=== PATIENT | female | born 1960 ===

== ENCOUNTER 2019-01-04 19:47 | Emergency (ER) | payer BC ==
[2019-01-04 19:54] VITALS: BP 166/106
--- NOTE | 2019-01-04 19:57 | EDM.PDOC ---
ED HPI GENERAL MEDICAL PROBLEM - General Chief Complaint: Laceration Stated Complaint: LACERATION Time Seen by Provider: 01/04/19 19:57 Source of Information: Reports: Patient, Family, RN, RN Notes Reviewed History Limitations: Reports: No Limitations - History of Present Illness INITIAL COMMENTS - FREE TEXT/NARRATIVE: Pt to ER with c/o laceration to the left hand. Patient states she was cutting frozen hamburgers apart when the knife slipped and she cut her hand between the ring and pinky finger on the left hand, and on the lateral aspect of the left pinky. Patient states she is "probably not" up to date on Tetanus vaccination. She states she is unsure when her last Tetanus was. Patient is able to wiggle all fingers on left hand. Onset: Today, Sudden Left Hand Pain Score (Numeric/FACES): 4 - Related Data Allergies Allergy/AdvReac Type Severity Reaction Status Date / Time No Known Allergies Allergy Verified 06/04/15 05:05 Home Meds: Home Meds Lisinopril 1 tab PO DAILY 06/04/15 [History] Metoprolol Succinate [Toprol XL] 1 tab PO DAILY 06/04/15 [History] NIFEdipine [Nifedipine ER] 1 tab PO DAILY 06/04/15 [History] Past Medical History HEENT History: Reports: None Cardiovascular History: Reports: Hypertension Genitourinary History: Reports: Other (See Below) Other Genitourinary History: states that kidney's are only functioning at 65% capacity 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 Musculoskeletal History: Reports: None Neurological History: Reports: None Psychiatric History: Reports: None - Past Surgical History GI Surgical History: Reports: Appendectomy, Other (See Below) Social & Family History - Family History Family Medical History: Noncontributory Cardiac: Reports: None Respiratory: Reports: None GI: Reports: None : Reports: None OBGYN: Reports: None Psychiatric: Reports: None Endocrine/Metabolic: Reports: None - Tobacco Use Smoking Status *Q: Never Smoker - Alcohol Use Days Per Week of Alcohol Use: 1 Number of Drinks Per Day: 1 Total Drinks Per Week: 1 - Recreational Drug Use Recreational Drug Use: No ED ROS GENERAL - Review of Systems Review Of Systems: ROS reveals no pertinent complaints other than HPI. ED EXAM, SKIN/RASH Exam: See Below Exam Limited By: No Limitations General Appearance: Alert, WD/WN, No Apparent Distress Eye Exam: Bilateral Eye: EOMI, Normal Inspection Ears: Normal External Exam, Hearing Grossly Normal Nose: Normal Inspection Throat/Mouth: Normal Inspection, Normal Voice, No Airway Compromise Head: Atraumatic, Normocephalic Neck: Normal Inspection, Supple, Non-Tender, Full Range of Motion Respiratory/Chest: No Respiratory Distress, Lungs Clear, Normal Breath Sounds, No Accessory Muscle Use, Chest Non-Tender Cardiovascular: Normal Peripheral Pulses, Regular Rate, Rhythm, No Edema, No Gallop, No JVD, No Murmur, No Rub Peripheral Pulses: 2+: Radial (L), Radial (R) GI/Abdominal: Normal Bowel Sounds, Soft, Non-Tender (Female) Exam: Deferred Rectal (Female) Exam: Deferred Back Exam: Normal Inspection, Full Range of Motion, NT Extremities: Normal Inspection, Normal Range of Motion, Non-Tender, No Pedal Edema, Normal Capillary Refill Neurological: Alert, Oriented, CN II-XII Intact, Normal Cognition, Normal Gait, Normal Reflexes, No Motor/Sensory Deficits Psychiatric: Normal Affect, Normal Mood Skin: Warm, Dry, Other (1.0cm laceration to lateral aspect of left pinky, 2.0cm laceration between ring and pinky finger on left hand) Location, Skin: Upper Extremity, Left Lymphatic: No Adenopathy ED SKIN PROCEDURES - Laceration/Wound Repair Left Lateral Digit - 5th (Baby) Appearance: Subcutaneous Distal NVT: Neuro & Vascular Intact Anesthetic Type: Local Local Anesthesia - Lidocaine (Xylocaine): 1% Plain Local Anesthetic Volume: 3cc Skin Prep: Chlorhexidine (Hibiciens) Exploration/Debridement/Repair: Wound Explored, In a Bloodless Field, Explored to Base, No Foreign Material Found Closed with: Sutures Lac/Wound length In cm: 1 Suture Size: 4-0 # of Sutures: 2 Suture Type: Nylon, Interrupted Drain Placement: No Sterile Dressing Applied: Nurse Tetanus Status Addressed: Yes Complications: No Medial Other Appearance: Subcutaneous Distal NVT: Neuro & Vascular Intact Anesthetic Type: Local Local Anesthesia - Lidocaine (Xylocaine): 1% Plain Local Anesthetic Volume: Other (6) Skin Prep: Chlorhexidine (Hibiciens) Exploration/Debridement/Repair: Wound Explored, In a Bloodless Field, Explored to Base, No Foreign Material Found Closed with: Sutures Lac/Wound length In cm: 2 Suture Size: 4-0 # of Sutures: 4 Suture Type: Nylon, Interrupted Drain Placement: No Sterile Dressing Applied: Nurse Tetanus Status Addressed: Yes Complications: No Progress/Comments: Between left ring and pinky fingers Course - Vital Signs Last Recorded V/S: Last Vital Signs Temp 96.2 F 01/04/19 19:52 Pulse 69 01/04/19 19:52 Resp 16 01/04/19 19:52 BP 166/106 H 01/04/19 19:52 Pulse Ox 94 L 01/04/19 19:52 - Orders/Labs/Meds Orders: Active Orders 24 hr Category Date Time Status Vaccines to be Administered [RC] PER UNIT ROUTINE Care 01/04/19 20:23 Active Meds: Medications Discontinued Medications Generic Name Dose Route Start Last Admin Trade Name Dawn PRN Reason Stop Dose Admin Bacitracin 1 dose 01/04/19 19:59 01/04/19 20:02 Bacitracin Oint 1 Gm TOP 01/04/19 20:00 1 dose ONETIME ONE Administration Diphtheria/Tetanus/Acell Pertussis 0.5 ml 01/04/19 20:23 01/04/19 20:35 Adacel IM 01/04/19 20:24 0.5 ml .ONCE ONE Administration Lidocaine HCl 30 ml 01/04/19 19:59 01/04/19 20:02 Xylocaine-Mpf 1% INJECT 01/04/19 20:00 30 ml ONETIME ONE Administration Departure - Departure Time of Disposition: 20:34 Disposition: Home, Self-Care 01 Condition: Good Clinical Impression: Laceration - Discharge Information *PRESCRIPTION DRUG MONITORING PROGRAM REVIEWED*: No *COPY OF PRESCRIPTION DRUG MONITORING REPORT IN PATIENT VERONICA: No Instructions: Laceration Care, Adult, [id number], Stitches, Effie, or Adhesive Wound Closure, [id number] Forms: ED Department Discharge Additional Instructions: Monitor for signs of infection Follow up with your primary care facility in 7-10 days to have sutures removed Keep areas clean and dry - My Orders Last 24 Hours: My Active Orders 01/04/19 20:23 Vaccines to be Administered [RC] PER UNIT ROUTINE - Assessment/Plan Last 24 Hours: My Active Orders 01/04/19 20:23 Vaccines to be Administered [RC] PER UNIT ROUTINE
[2019-01-04] MEDS ORDERED: Bacitracin Oint 1 GM U/D Packet TOP ONE (19:59)
[2019-01-04] MEDS ORDERED: Lidocaine 1% 30 ML SDV INJECT ONE (19:59)
[2019-01-04] MEDS ORDERED: Diphtheria,Pertussis(Acell),Tetanus Vaccine 0.5 ML SDV IM ONE (20:23)
== END 2019-01-04 20:43 | disposition home or self-care (01) ==
LOC: DL.ED 19:47
DX: S61.217A Laceration without foreign body of left little finger without damage to nail, initial encounter (principal); S61.412A Laceration without foreign body of left hand, initial encounter; I10 Essential (primary) hypertension; Z23 Encounter for immunization; Z79.899 Other long term (current) drug therapy; W26.0XXA Contact with knife, initial encounter
CPT/HCPCS: 12002; 90471; 90715; 99282; J2001; 12001

== ENCOUNTER 2023-07-02 05:26 | Day surgery (SDC) | payer OTHER ==
[2023-07-02] MEDS ORDERED: fentaNYL 100 MCG/2 ML SDV IV ONE (05:27)
[2023-07-02] MEDS ORDERED: Midazolam 1 MG/ML 2 ML SDV IV ONE (05:27)
[2023-07-02] MEDS: Dextrose 5%-0.45% NaCl 1,000 ML IV SCH (05:57)
[2023-07-02] MEDS ORDERED: Midazolam 1 MG/ML 2 ML SDV ONE (06:14)
[2023-07-02] MEDS ORDERED: fentaNYL 100 MCG/2 ML SDV ONE (06:14)
[2023-07-02] MEDS: fentaNYL 100 MCG/2 ML SDV IV ONE ×3 (06:32→06:44)
[2023-07-02] MEDS: Midazolam 1 MG/ML 2 ML SDV IV ONE ×6 (06:33→06:42)
[2023-07-02 07:53] VITALS: BP 127/73; PULSE 47
== END 2023-07-02 08:40 | disposition home or self-care (01) ==
LOC: DL.ENDO 05:26
PROVIDERS: ATTEND Internal Medicine Gastroenterology
DX: Z12.11 Encounter for screening for malignant neoplasm of colon (principal); I12.9 Hypertensive chronic kidney disease with stage 1 through stage 4 chronic kidney disease, or unspecified chronic kidney disease; N18.30 Chronic kidney disease, stage 3 unspecified; E66.09 Other obesity due to excess calories; Z68.35 Body mass index [BMI] 35.0-35.9, adult; Z79.899 Other long term (current) drug therapy
CPT/HCPCS: 45380; J2250; J3010; J7042